=== PATIENT | male | born 1950 | race Caucasian/White ===

== ENCOUNTER → 2020-09-17 09:32 | Outpatient (CLI) | payer MEDICARE, OTHER, SELFPAY ==
--- NOTE | ~2020-09-17 | XR_ITS ---
XR abdomen obstructive series DATE: 09/17/2020 09:50 INDICATION: Diarrhea for 8 weeks TECHNIQUE: Supine and upright AP views COMPARISON: 11/30/2017 KUB FINDINGS: There is a prominent amount of fecal material throughout the colon, consistent with constip ation. No bowel obstruction is evident. The psoas shadows are intact. No visceromegaly is evident. No intraperitoneal free air is evident. The lung bases are clear. IMPRESSION: Prominent of fecal material throughout the colon, consistent with constipation Reviewed, dictated and finalized at [facility] Reviewed, dictated and finalized at [facility] [employer] IMPRESSION: Prominent of fecal material throughout the colon, consistent with c onstipation
== END ==
PROVIDERS: PCP Nurse Practitioner Family; Visit Provider Nurse Practitioner Family
DX: R19.7 Diarrhea, unspecified (principal)
CPT/HCPCS: 74019

== ENCOUNTER 2022-06-12 01:04 | Day surgery (SDC) | payer MEDICARE, OTHER, SELFPAY ==
[2022-05-27 14:28] VITALS: BMI 24.3
[2022-06-12 09:12] VITALS: BP 149/88; PULSE 70; RESP 18; TEMP 36.1; O2SAT 97
--- NOTE | 2022-06-12 09:17 | P.HP_ITS ---
History of Present Illness History of Present Illness Consent: Risks, benefits, and alternatives have been discussed and questions answered. Patient agrees to proceed with procedure. Chief complaint: positive cologuard Narrative: Yo Lou is a 72 year old male Presents for screening colonoscopy. Recent screening Cologuard stool test was positive. Patient's current weight appetite and bowel movements are normal. Patient denies abdominal pain. He has had no bleeding. Family history is noncontributory. Patient recently found to have positive Cologuard test. Review of Systems Review of Systems: Review of systems noncontributory. [facility] Family History Family History (Updated 07/13/18 @ 00:00 by CONVUSER Annette) Sibling Patient's sister is in good health Patient's brother is in good health Father Family history of dementia Social History Social History Smoking status: Never smoker Alcohol intake: never Substance use: never Substance use type: does not use Living arrangements: with family Spiritual care concerns: No Meds Home Medications and Allergies Home Medications Medication Instructions Recorded Confirmed Type Ozempic 0.5 100 ml subdermal WEEKLY 05/27/22 05/27/22 History losartan 50 mg-hydrochlorothiazide 1 tablet PO DAILY 05/27/22 05/27/22 History 12.5 mg tablet metformin 1,000 mg tablet 500 mg PO BID 05/27/22 05/27/22 History Allergies Allergy/AdvReac Type Severity Reaction Status Date / Time No Known Allergies Allergy Unverified 06/12/22 09:12 Vital Signs Vital Signs - 24 hr 06/12/22 09:12 Temperature 97 F L Pulse Rate 70 Respiratory Rate 18 Blood Pressure 149/88 H Pulse Oximetry 97 Oxygen Delivery Room Air Exam Narrative: Physical exam reveals patient to be alert. Vital signs stable. HEENT exam is unremarkable. Patient is anicteric. Lungs are clear to auscultation and percussion. Heart is without murmur or extra sounds. Abdomen bowel sounds present soft nontender with no organomegaly. Digital external rectal exam is normal. Assessment and Plan Assessment and plan (1) Positive colorectal cancer screening using Cologuard test: Code(s): R19.5 - Other fecal abnormalities Status: Acute Assessment and Plan: Patient presents for screening colonoscopy because of positive Cologuard test. This suggests he has a higher than average chance of colon polyps. Further recommendations will be given after endoscopy.
[2022-06-12 09:27] LABS: Glucose Point of Care 124 mg/dl (65-105)
[2022-06-12] MEDS: LACTATED RINGERS 1,000 ML 150 ML IV CONT (09:27)
--- NOTE | 2022-06-12 09:56 | P.PNAN_ITS ---
Anes - Initial Pre Proc Eval Procedure: Operation Date: 06/12/22 10:30 Proposed Procedures p Colonoscopy - Rogers Salazar MD Date/Time: 06/12/22 09:56 Surgeon: Rogers Salazar MD Pre Op Diagnosis: positive cologuard Patient Data Age: 72 Gender: M Height: 1.91 m Weight: 88.8 kg Last Vital Signs Temp 97 F L 06/12/22 09:12 Pulse 70 06/12/22 09:12 Resp 18 06/12/22 09:12 BP 149/88 H 06/12/22 09:12 Pulse Ox 97 06/12/22 09:12 O2 Del Method Room Air 06/12/22 09:12 Allergies Allergy/AdvReac Type Severity Reaction Status Date / Time No Known Allergies Allergy Unverified 06/12/22 09:12 Home Medications Medication Instructions Recorded Confirmed Type Ozempic 0.5 100 ml subdermal WEEKLY 05/27/22 05/27/22 History losartan 50 mg-hydrochlorothiazide 1 tablet PO DAILY 05/27/22 05/27/22 History 12.5 mg tablet metformin 1,000 mg tablet 500 mg PO BID 05/27/22 05/27/22 History Laboratory Tests 06/12/22 09:23 POC Capillary Glucose 124 mg/dl H mg/dl (65-105) Patient hx anesthesia problems: none Family hx anesthesia problems: none Results Review: All pre-operative results and documents have been reviewed as part of the pre- operative evaluation. [facility] Family History Family History (Updated 07/13/18 @ 00:00 by CONVUSER A) Sibling Patient's sister is in good health Patient's brother is in good health Father Family history of dementia Social History Social History Smoking status: Never smoker Alcohol intake: never Substance use: never Substance use type: does not use Living arrangements: with family Spiritual care concerns: No Anes - Eval Final PreProcedure Day of Procedure 06/12/22 09:56 Patient weight: normal Heart: regular rate and rhythm Lungs: clear to auscultation Airway: Mallampati scale class II Neurological: alert and oriented Last oral intake: >/= 8 hours ASA classification: II Emergent: no Anesthetic plan: proceed Anesthesia type and monitoring: general GIVS and standard monitoring Results Review: All pre-operative results and documents have been reviewed as part of the pre- operative evaluation. Informed Consent: The patient's anesthetic plan and its attendant risks and benefits were discussed with the patient/family/POA. Questions were solicited and answers provided to the satisfaction of the patient/family/POA.
[2022-06-12 10:50] VITALS: BP 121/80; PULSE 68; RESP 22; O2SAT 99
[2022-06-12 11:00] VITALS: BP 130/85; PULSE 62; RESP 21; O2SAT 99
[2022-06-12 11:10] VITALS: BP 142/87; PULSE 61; RESP 15; O2SAT 100
== END 2022-06-12 11:23 | disposition home or self-care (01) ==
PROVIDERS: PCP Family Medicine; Visit Provider Internal Medicine Gastroenterology
PROC: 0DJD8ZZ Inspection of Lower Intestinal Tract, Via Natural or Artificial Opening Endoscopic (ICD-10-PCS; CPT 45378; principal; 2022-06-12 10:30)
DX: Z12.11 Encounter for screening for malignant neoplasm of colon (principal); R19.5 Other fecal abnormalities; D12.2 Benign neoplasm of ascending colon; K63.5 Polyp of colon; K57.30 Diverticulosis of large intestine without perforation or abscess without bleeding; K64.8 Other hemorrhoids; Z79.84 Long term (current) use of oral hypoglycemic drugs
CPT/HCPCS: 45385; 82948; 88305; J2704; J7120

== ENCOUNTER 2024-08-03 08:36 | Day surgery (SDC) | payer MEDICARE, SELFPAY ==
[2024-06-21 12:08] VITALS: BMI 25.6
[2024-07-19 11:53] VITALS: BMI 25.6
--- NOTE | 2024-08-03 06:55 | P.PNAN_ITS ---
Anes - Initial Pre Proc Eval Procedure: Operation Date: 08/03/24 11:00 Proposed Procedures p Esophagogastroduodenoscopy - Rogers Salazar MD Date/Time: 08/03/24 06:55 Surgeon: Rogers Salazar MD Pre Op Diagnosis: Dysphagia, unspecified Patient Data Age: 74 Gender: M Height: 1.91 m Weight: 93 kg Allergies Allergy/AdvReac Type Severity Reaction Status Date / Time No Known Allergies Allergy Verified 08/03/24 09:37 Home Medications ?Medication ?Instructions ?Recorded ?Confirmed ?Type losartan 50 mg-hydrochlorothiazide 1 tablet PO DAILY 05/27/22 08/03/24 History 12.5 mg tablet glimepiride 1 mg tablet 1 mg PO QAM 06/09/24 08/03/24 History Patient hx anesthesia problems: none Family hx anesthesia problems: none Results Review: All pre-operative results and documents have been reviewed as part of the pre- operative evaluation. [facility] Past Medical History Medical History (Updated 08/03/24 @ 06:55 by Oleg Andino DO) Diabetes type 2, controlled Asthma Hypertension Adenomatous colon polyp Dysphagia Family History Family History Sibling Patient's sister is in good health Patient's brother is in good health Father Family history of dementia Social History Social History Smoking status: Never smoker Alcohol intake: never Substance use: never Substance use type: does not use Living arrangements: with family Spiritual care concerns: No Anes - Eval Final PreProcedure Day of Procedure 08/03/24 06:55 Patient weight: overweight Heart: regular rate and rhythm Lungs: clear to auscultation Airway: Mallampati scale class II Neurological: alert and oriented Last oral intake: >/= 8 hours ASA classification: III Emergent: no Anesthetic plan: proceed Anesthesia type and monitoring: general GIVS and standard monitoring Results Review: All pre-operative results and documents have been reviewed as part of the pre- operative evaluation. Informed Consent: The patient's anesthetic plan and its attendant risks and benefits were discussed with the patient/family/POA. Questions were solicited and answers provided to the satisfaction of the patient/family/POA.
[2024-08-03 09:55] VITALS: BP 131/94; PULSE 70; RESP 16; TEMP 36.8; O2SAT 98
[2024-08-03] MEDS: LACTATED RINGERS 1,000 ML 150 ML IV CONT (10:00)
[2024-08-03 10:06] LABS: Glucose Point of Care 177 mg/dl (65-105)
--- NOTE | 2024-08-03 10:16 | PM.HPGS ---
History of Present Illness History of Present Illness Consent: Risks, benefits, and alternatives have been discussed and questions answered. Patient agrees to proceed with procedure. Chief complaint: Dysphagia Narrative: Yo Lou is a 74 year old male referred for EGD. The patient reports food catching the mid substernal portion of the chest. Some at least 6 weeks ago patient had a food impacted emergency room. Apparently this res resolve spontaneously with the assistance of glucagon. Patient denies any weight loss. He states 10 years ago he had a distal esophageal web requiring dilatation. Patient denies heartburn. Although occasionally will use sodium bicarbonate at bedtime. Family history is noncontributory. Patient presents today for EGD to evaluate. Review of Systems Review of Systems: All systems reviewed & are unremarkable except as noted in HPI and below PMFSH Past Medical History Medical History (Updated 08/03/24 @ 06:55 by Oleg Andino DO) Diabetes type 2, controlled Asthma Hypertension Adenomatous colon polyp Dysphagia Family History Family History Sibling Patient's sister is in good health Patient's brother is in good health Father Family history of dementia Social History Social History Smoking status: Never smoker Alcohol intake: never Substance use: never Substance use type: does not use Living arrangements: with family Spiritual care concerns: No Meds Home Medications and Allergies Home Medications ?Medication ?Instructions ?Recorded ?Confirmed ?Type losartan 50 mg-hydrochlorothiazide 1 tablet PO DAILY 05/27/22 08/03/24 History 12.5 mg tablet glimepiride 1 mg tablet 1 mg PO QAM 06/09/24 08/03/24 History Allergies Allergy/AdvReac Type Severity Reaction Status Date / Time No Known Allergies Allergy Verified 08/03/24 09:37 Vital Signs Vital Signs - 24 hr 08/03/24 09:55 Temperature 98.2 F Pulse Rate 70 Respiratory Rate 16 Blood Pressure 131/94 H Pulse Oximetry 98 Oxygen Delivery Room Air Exam Narrative: Physical exam reveals patient to be alert. Vital signs stable. HEENT exam is unremarkable. Patient is anicteric. Lungs are to auscultation and to percussion. Heart is without murmur or extra sounds. Abdomen bowel sounds are present soft nontender with no organomegaly. Digital external rectal exam normal. Assessment and Plan Assessment and plan (1) Dysphagia: Code(s): R13.10 - Dysphagia, unspecified Status: Acute Assessment and Plan: History of food impaction. Food seems to pass slowly through the mid esophagus suggesting esophageal narrowing. Plan for EGD assess more thoroughly.
[2024-08-03 11:40] VITALS: BP 104/74; PULSE 78; RESP 16; O2SAT 96
--- NOTE | 2024-08-03 11:48 | WPDANESPN ---
Anes - Prog Note Post-Op Date/Time: 08/03/24 11:48 Cardiovascular status: normal Respiratory status: normal Airway patency: baseline Mental status: baseline Post-Op hydration status: normal Vital Signs: Last Vital Signs Temp 36.8 C 08/03/24 09:55 Pulse 78 08/03/24 11:40 Resp 16 08/03/24 11:40 BP 104/74 08/03/24 11:40 Pulse Ox 96 08/03/24 11:40 O2 Del Method Room Air 08/03/24 11:40 Pain Score (VAS): 0 I/O: Intake & Output 08/02/24 08/03/24 08/03/24 23:59 07:59 15:59 Intake Total 100 Balance 100 08/03/24 09:54 POC Capillary Glucose 177 H Post-procedural complaints: none Patient Feedback: Patient satisfied with anesthetic care. Other Findings: Patient vital signs back to baseline. Patient denies nausea and vomiting. Patient's pain under control. Patient OK for discharge.
[2024-08-03 11:50] VITALS: BP 141/91; PULSE 71; RESP 14; O2SAT 98
[2024-08-03 12:00] VITALS: BP 147/97; PULSE 67; RESP 15; O2SAT 99
== END 2024-08-03 12:22 | disposition home or self-care (01) ==
PROVIDERS: PCP Family Medicine; Visit Provider Internal Medicine Gastroenterology
PROC: 0DJ08ZZ Inspection of Upper Intestinal Tract, Via Natural or Artificial Opening Endoscopic (ICD-10-PCS; CPT 43235; principal; 2024-08-03 11:00)
DX: R13.19 Other dysphagia (principal); K21.00 Gastro-esophageal reflux disease with esophagitis, without bleeding
CPT/HCPCS: 43450